=== PATIENT | female | born 1965 | race Caucasian/White ===

== ENCOUNTER → 2016-09-04 | Outpatient (CLI) | payer BC ==
[~2016-09-04] MED LIST: CALC-279 PO; DOXY50CA PO; EFF75 PO; GABA300C19 PO; GABA600T PO; MULT-506 PO; SPIR25TA PO; VALA500T39 PO; VENL150C56 PO
== END | disposition home or self-care (01) ==
LOC: C.LABSPEC 13:12
PROVIDERS: ATTEND Dermatology
DX: L03.90 Cellulitis, unspecified (principal)

== ENCOUNTER → 2016-12-10 | Outpatient (CLI) | payer BC ==
[~2016-12-10] MED LIST changes: +GABA-1218 PO; -GABA300C19 PO
[2016-12-10 13:21] LABS: URINE APPEARANCE CLEAR (CLEAR); URINE BILIRUBIN NEG (NEG); URINE COLOR YELLOW; URINE EPITHELIAL CELL AUTO >30 /lpf (0-5); URINE NITRITE POS (NEG); URINE SPECIFIC GRAVITY 1.005 (1.000-1.030); UROBILINOGEN NEG (NEG)
[2016-12-10 13:33] LABS: MANUAL MICROSCOPIC REQUIRED? NO; REVIEW REQ? NO
== END | disposition home or self-care (01) ==
LOC: C.LABPVFM 10:38
PROVIDERS: ATTEND Obstetrics & Gynecology
DX: R39.15 Urgency of urination (principal)

== ENCOUNTER → 2016-12-26 | Outpatient (CLI) | payer BC ==
[2016-12-26 12:55] LABS: ESTIMATED AVERAGE GLUCOSE 111 mg/dl; HA1C FLAG Normal (Normal)
== END | disposition home or self-care (01) ==
LOC: C.LABPVFM 09:20
PROVIDERS: ATTEND Internal Medicine
DX: R73.9 Hyperglycemia, unspecified (principal)

== ENCOUNTER → 2017-02-04 | Outpatient (CLI) | payer BC ==
--- NOTE | 2017-02-04 16:05 | DIAGNOSTIC IMAGING REPORT ---
LEFT WRIST MIN 3 VIEWS ROUTINE CLINICAL HISTORY: LEFT WRIST INJURY trauma COMPARISON: None. DISCUSSION: Nondisplaced cortical fracture distal radius. Fracture involves the articular services. Mild soft tissue edema. No evidence of dislocation. All remaining osseous structures are unremarkable. Moderate soft tissue edema IMPRESSION: Nondisplaced cortical fracture distal radius. Electronically signed by: Hebert Cunningham M.D. 02/04/2017 4:03 PM Dictated Date/Time: 02/04/2017 4:03 PM
--- NOTE | 2017-02-04 16:07 | DIAGNOSTIC IMAGING REPORT ---
LEFT HAND MIN 3 VIEWS ROUTINE CLINICAL HISTORY: LEFT WRIST INJURY trauma COMPARISON: None. DISCUSSION: Nondisplaced cortical fracture distal radius. All remaining osseous structures are unremarkable. Small old avulsion base fifth metacarpal. Mild soft tissue edema. IMPRESSION: Nondisplaced cortical fracture distal radius. Mild degenerative change of the osseous structures of the hand. Electronically signed by: Hebert Cunningham M.D. 02/04/2017 4:05 PM Dictated Date/Time: 02/04/2017 4:04 PM
== END | disposition home or self-care (01) ==
LOC: C.RAD1850 15:49
PROVIDERS: ATTEND Physician Assistant
DX: S69.92XA Unspecified injury of left wrist, hand and finger(s), initial encounter (principal); X58.XXXA Exposure to other specified factors, initial encounter

== ENCOUNTER → 2017-02-04 | Outpatient (CLI) | payer BC | END | disposition home or self-care (01) | LOC: C.LABSPEC 16:23 | PROVIDERS: ATTEND Dermatology | DX: K13.0 Diseases of lips (principal) ==

== ENCOUNTER → 2017-02-19 | Outpatient (CLI) | payer BC ==
[~2017-02-19] MED LIST changes: -GABA-1218 PO; +GABA300C19 PO
--- NOTE | 2017-02-19 10:49 | DIAGNOSTIC IMAGING REPORT ---
LEFT WRIST MIN 3 VIEWS ROUTINE CLINICAL HISTORY: F/U LEFT WRIST FX fracture COMPARISON: 02/04/2017 DISCUSSION: Fracture distal radius considered nondisplaced. Potential slight partial healing compared to the prior study. Alignment remains anatomic. There is no evidence for soft tissue swelling. IMPRESSION: Slight interval healing of a distal radial fracture. Alignment remains anatomic. Electronically signed by: Hebert Cunningham M.D. 02/19/2017 10:48 AM Dictated Date/Time: 02/19/2017 10:47 AM
== END | disposition home or self-care (01) ==
LOC: C.RDSM 15:47
PROVIDERS: ATTEND Family Medicine
DX: S52.502D Unspecified fracture of the lower end of left radius, subsequent encounter for closed fracture with routine healing (principal); X58.XXXD Exposure to other specified factors, subsequent encounter

== ENCOUNTER → 2017-03-05 | Outpatient (CLI) | payer BC ==
--- NOTE | 2017-03-05 10:06 | DIAGNOSTIC IMAGING REPORT ---
LEFT WRIST MIN 3 VIEWS ROUTINE CLINICAL HISTORY: Left wrist fracture. COMPARISON: Left wrist radiographs March 05, 2017. FINDINGS: Carpal bones are intact. There is no acute fracture of the distal left ulna. There is increased sclerosis of the distal left radius. Fracture with intra-articular extension remains evident. Partial interval healing is noted. Alignment maintained unchanged. Fracture is minimally displaced. IMPRESSION: Partial interval healing of the distal left radial fracture with no change in alignment. Electronically signed by: Bear Allen M.D. 03/05/2017 10:05 AM Dictated Date/Time: 03/05/2017 10:04 AM
== END | disposition home or self-care (01) ==
LOC: C.RDSM 15:48
PROVIDERS: ATTEND Family Medicine
DX: S62.102A Fracture of unspecified carpal bone, left wrist, initial encounter for closed fracture (principal); X58.XXXA Exposure to other specified factors, initial encounter

== ENCOUNTER → 2017-04-03 | Outpatient (CLI) | payer BC | END | disposition home or self-care (01) | LOC: C.LABSPEC 16:01 | PROVIDERS: ATTEND Dermatology | DX: L70.0 Acne vulgaris (principal) ==

== ENCOUNTER → 2017-04-05 | Outpatient (CLI) | payer BC ==
--- NOTE | 2017-04-05 10:19 | DIAGNOSTIC IMAGING REPORT ---
LEFT WRIST 4 VIEWS CLINICAL HISTORY: Healing fracture. FINDINGS: 4 views of left wrist are compared to study dated 03/05/2017. The skeletal structures are osteopenic. There is sclerosis in the distal radial metaphysis consistent with a healing fracture. No acute fracture is seen. Minimal degenerative narrowing is seen at the radiocarpal articulation. The overlying soft tissues are within normal limits. IMPRESSION: There is only mild sclerosis seen in the distal radial metaphysis at the site of a healing fracture. Electronically signed by: Forrest Hazel M.D. 04/05/2017 10:17 AM Dictated Date/Time: 04/05/2017 10:16 AM
== END | disposition home or self-care (01) ==
LOC: C.RDSM 10:30
PROVIDERS: ATTEND Family Medicine
DX: S62.102A Fracture of unspecified carpal bone, left wrist, initial encounter for closed fracture (principal); X58.XXXA Exposure to other specified factors, initial encounter

== ENCOUNTER → 2017-10-18 | Outpatient (CLI) | payer BC ==
[~2017-10-18] MED LIST changes: +GABA-1218 PO; -GABA300C19 PO
[2017-10-18 12:42] LABS: HEMATOCRIT 41.4 % (37-47); MEAN CELL VOLUME 94.3 fL (80-100); MEAN CORPUSCULAR HEMOGLOBIN 31.9 pg (25-34); MEAN CORPUSCULAR HGB CONC 33.8 g/dl (32-36); MEAN PLATELET VOLUME 10.1 fL (7.4-10.4); PLATELET COUNT 386 K/uL (130-400); RED CELL DISTRIBUTION WIDTH CV 13.8 % (11.5-14.5); RED CELL DISTRIBUTION WIDTH SD 47.4 fL (36.4-46.3); WHITE BLOOD COUNT 3.91 K/uL (4.8-10.8)
[2017-10-18 13:14] LABS: BLOOD UREA NITROGEN 14 mg/dl (7-18); CALCIUM 9.1 mg/dl (8.5-10.1); CARBON DIOXIDE 29 mmol/L (21-32); CHOLESTEROL 226 mg/dl (0-200); CREATININE 0.92 mg/dl (0.60-1.20); GLUCOSE 114 mg/dl (70-99); POTASSIUM 3.9 mmol/L (3.5-5.1); SODIUM 133 mmol/L (136-145)
[2017-10-18 13:25] LABS: LDL CHOLESTEROL CALCULATED 102 mg/dl
[2017-10-18 14:55] LABS: ALBUMIN 4.1 gm/dl (3.4-5.0); ALKALINE PHOSPHATASE 64 U/L (45-117); ALT/SGPT 33 U/L (12-78); AST/SGOT 24 U/L (15-37)
== END | disposition home or self-care (01) ==
LOC: C.LABPVFM 09:39
PROVIDERS: ATTEND Internal Medicine
DX: L71.9 Rosacea, unspecified (principal); L70.0 Acne vulgaris; R15.2 Fecal urgency; R73.9 Hyperglycemia, unspecified

== ENCOUNTER → 2017-11-06 | Outpatient (CLI) | payer BC | END | disposition home or self-care (01) | LOC: C.LAB1850 11:01 | PROVIDERS: ATTEND Internal Medicine | DX: E03.9 Hypothyroidism, unspecified (principal) ==

== ENCOUNTER → 2018-01-01 | Outpatient (CLI) | payer BC | END | disposition home or self-care (01) | LOC: C.LABPVFM 12:04 | PROVIDERS: ATTEND Internal Medicine | DX: Z00.00 Encounter for general adult medical examination without abnormal findings (principal) ==

== ENCOUNTER → 2018-04-07 | Outpatient (CLI) | payer BC ==
[~2018-04-07] MED LIST changes: -VALA500T39 PO; +VALA500T41 PO
== END | disposition home or self-care (01) ==
LOC: C.PAPS 16:45
PROVIDERS: ATTEND Obstetrics & Gynecology
DX: Z01.419 Encounter for gynecological examination (general) (routine) without abnormal findings (principal)